=== PATIENT | female | born 1975 | race Two or more races ===

== ENCOUNTER 2024-06-23 14:40 | Day surgery (SDC) | payer OTHER ==
[2024-06-16 13:25] VITALS: BP 91/61
[2024-06-16 13:34] LABS: INR 1.03; PROTHROMBIN TIME 11.2 SECONDS (9.0-11.5)
[~2024-06-23] VITALS: Ht 154.9 cm; Wt 61.2 kg
[2024-06-23] MEDS ORDERED: POVIDONE-IODINE 118 ML BOTT TOP ONE (16:07)
[2024-06-23] MEDS ORDERED: ACETAMINOPHEN 500 MG GEL..CAP PO ONE ×2 (16:16→19:49)
== END 2024-06-23 20:10 | disposition home or self-care (01) ==
LOC: CIR.AMB 14:40
PROVIDERS: Student in an Organized Health Care Education/Training Program
DX: N84.0 Polyp of corpus uteri (principal); N93.8 Other specified abnormal uterine and vaginal bleeding; Z91.013 Allergy to seafood; Z88.6 Allergy status to analgesic agent